=== PATIENT | male | born 1965 | race Caucasian/White ===

== ENCOUNTER → 2016-12-02 | Day surgery (SDC) | payer OTHER ==
[~2016-12-02] MED LIST: ADVIL200 M1 PO; CYMBALTA PO; DICLOFENAC PO; DURAGESIC TOP; IBUPROFEN600 MG PO; NEURONTIN PO; NEURONTIN800 MG PO; PRINIVIL20 M1 PO; ROZEREM8 MG PO; TOPAMAX PO; TRAMADOL HCL50 M2 PO; ULTRAM PO
--- NOTE | ~2016-12-02 | OR ---
Unit #: [id number] #: [id number] Patient: DELFINA VAZQUEZ [id number] [address] [address] [id number] O MR#: [id number] NAME: DELFINA VAZQUEZ ROOM: Date of Procedure: 12/02/2016 Admission Date: 12/02/2016 Surgeon: Dave Mares M.D. : 1965 Attending Physician: Dave Mares M.D. OPERATIVE REPORT PREOPERATIVE DIAGNOSES 1. Neck pain. 2. Cervical radiculopathy. 3. Degenerative cervical disk disease, post-cervical fusion. POSTOPERATIVE DIAGNOSES 1. Neck pain. 2. Cervical radiculopathy. 3. Degenerative cervical disk disease, post-cervical fusion. PROCEDURE PERFORMED Cervical epidural steroid injection with intravenous sedation and fluoroscopic guidance for needle localization. INDICATIONS FOR PROCEDURE The patient is a 51-year-old male, who had worsening neck and upper extremity pain. He has known degenerative cervical disk disease. He was last treated with cervical epidural steroid injection about a year and a half ago and did fairly well. He had resurgence of symptoms. Plan is to repeat an epidural steroid injection. He has also had touring issues with his lumbar and lower thoracic spine. We are going to have him get neurosurgical evaluation to address that. DESCRIPTION OF PROCEDURE The patient was placed in a seated position. Standard monitors were applied. 2 mg of Versed were given for sedation and anxiolysis, which were adequate. Vital signs remained stable. Sterile prep and drape then of the cervical area was performed. The skin then at the C7 level was localized with 1% lidocaine. An 18-gauge [employer] needle was then advanced via hanging drop technique and fluoroscopic guidance in toward the epidural space. The patient did not complain of pain or paresthesia during needle advancement. After confirming proper positioning with fluoroscopy and radiographic contrast, 80 mg of Depo-Medrol and 2 mL of 0.25% bupivacaine were deposited. The patient tolerated the procedure otherwise well and was discharged to the recovery room in stable condition. Dictated by... Dave Mares M.D. [facility] [place] Unit #: [id number] #: [id number] Patient: DELFINA VAZQUEZ TD: 12/03/2016 03:27 JOB #: [id number] OPERATIVE REPORT Page 1 of 1 X Dave Mares MD X PROCEDURE OPERATIVE NOTE
== END | disposition home or self-care (01) ==
LOC: CCSC 11:07
DX: M50.122 Cervical disc disorder at C5-C6 level with radiculopathy (principal); Z98.1 Arthrodesis status
CPT/HCPCS: J1040; J2250

== ENCOUNTER → 2017-03-24 | Day surgery (SDC) | payer MEDICARE ==
--- NOTE | ~2017-03-24 | OR ---
Unit #: [id number] #: [id number] Patient: DELFINA VAZQUEZ [id number] [address] [address] [id number] O MR#: [id number] NAME: DELFINA VAZQUEZ ROOM: Date of Procedure: 03/24/2017 Admission Date: 03/24/2017 Surgeon: Dave Mares M.D. : 1965 Attending Physician: Dave Mares M.D. OPERATIVE REPORT PREOPERATIVE DIAGNOSES Neck pain, cervical radiculopathy, degenerative cervical disk disease, cervical stenosis, post cervical fusion. POSTOPERATIVE DIAGNOSES Neck pain, cervical radiculopathy, degenerative cervical disk disease, cervical stenosis, post cervical fusion. PROCEDURE PERFORMED Cervical epidural steroid injection with fluoroscopic guidance for needle localization. INDICATIONS FOR PROCEDURE The patient is a 51-year-old male with neck and left upper extremity pain. He has severe neural foraminal narrowing and marked stenosis due to disk protrusion at C5-C6 and C6-C7. He has had cervical surgery for his pending lumbar fusion. In the past, cervical epidural had been effective and settling his pain down. Last time, a single injection was done improvement, so the plan is to repeat an injection at this point to look lasts better and longer for this patient. DESCRIPTION OF PROCEDURE The patient was placed in a seated position. Standard monitors were applied. Sterile prep and drape of the cervical area was performed. The skin then at the C5-C6 level was localized with 1% lidocaine. An 18-gauge [employer] needle was then advanced via hanging drop technique and fluoroscopic guidance in toward the epidural space. After confirming proper positioning with fluoroscopy and radiographic contrast, 80 mg of Depo-Medrol and 2 mL of preservative-free normal saline were deposited. The patient tolerated the procedure otherwise well and was discharged to the recovery room in stable condition. Dictated by... Hamlet OseiP/modl TD: 03/24/2017 12:11 JOB #: [id number] Unit #: [id number] #: [id number] Patient: DELFINA VAZQUEZ OPERATIVE REPORT Page 1 of 1 X Dave Mares MD X PROCEDURE OPERATIVE NOTE
== END | disposition home or self-care (01) ==
LOC: CCSC 09:57
DX: M50.122 Cervical disc disorder at C5-C6 level with radiculopathy (principal); M99.71 Connective tissue and disc stenosis of intervertebral foramina of cervical region; Z98.1 Arthrodesis status; Z88.8 Allergy status to other drugs, medicaments and biological substances; Z79.1 Long term (current) use of non-steroidal anti-inflammatories (NSAID); Z79.899 Other long term (current) drug therapy
CPT/HCPCS: J1040; J2250

== ENCOUNTER → 2017-04-09 | Day surgery (SDC) | payer OTHER ==
--- NOTE | ~2017-04-09 | OR ---
Unit #: [id number] #: [id number] Patient: DELFINA VAZQUEZ [id number] [address] [address] [id number] O MR#: [id number] NAME: DELFINA VAZQUEZ ROOM: Date of Procedure: 04/09/2017 Admission Date: 04/09/2017 Surgeon: Dave Mares M.D. : 1965 Attending Physician: Dave Mares M.D. Primary Care Physician: Anna Fabian OPERATIVE REPORT PREOPERATIVE DIAGNOSES Neck pain, degenerative cervical disk disease, cervical spinal stenosis, cervical radiculopathy. POSTOPERATIVE DIAGNOSES Neck pain, degenerative cervical disk disease, cervical spinal stenosis, cervical radiculopathy. PROCEDURE PERFORMED Cervical epidural steroid injection and fluoroscopic guidance for needle localization. INDICATIONS FOR PROCEDURE The patient is a 51-year-old male with previously mentioned diagnosis. He had an extensive posterior decompression. He still symptomatic. Initial epidural steroid injection done 2-1/2 weeks ago resulted in greater than 50% settling in his neck and upper extremity pains. Based on a good initial response, pathology, and symptomatology, we are going to proceed with a second injection today. DESCRIPTION OF PROCEDURE The patient was placed in the seated position. Standard monitors were applied. Sterile prep and drape of the cervical area was performed. The skin then at the C5-C6 level was localized with 1% lidocaine. An 18-gauge [employer] needle was then advanced via hanging drop technique and fluoroscopic guidance in toward the epidural space. The patient did not complain of pain or paresthesia. After confirming proper positioning with fluoroscopy and radiographic contrast, a dose of 80 mg of Depo-Medrol and 2 mL of preservative-free normal saline were deposited. The patient tolerated the procedure otherwise well and was discharged to the recovery room in stable condition. Dictated by... Hamlet OseiP/flower TD: 04/09/2017 13:38 JOB #: [id number] Unit #: [id number] #: [id number] Patient: DELFINA VAZQUEZ OPERATIVE REPORT Page 1 of 1 X Dave Mares MD X PROCEDURE OPERATIVE NOTE
== END | disposition home or self-care (01) ==
LOC: CCSC 07:55
PROVIDERS: Pain Medicine Pain Medicine
PROC: 3E0S3BZ Introduction of Anesthetic Agent into Epidural Space, Percutaneous Approach (ICD-10-PCS; 2017-04-09)
PROC: 3E0S33Z Introduction of Anti-inflammatory into Epidural Space, Percutaneous Approach (ICD-10-PCS; principal; 2017-04-09 09:00)
DX: M50.10 Cervical disc disorder with radiculopathy, unspecified cervical region (principal); M48.02 Spinal stenosis, cervical region; Z98.890 Other specified postprocedural states
CPT/HCPCS: J1040; J2250